=== PATIENT | female | born 1960 | race Caucasian/White ===

== ENCOUNTER 2019-01-12 06:59 | Day surgery (SDC) | payer OTHER ==
[~2019-01-12] VITALS: Ht 167.6 cm; Wt 108.6 kg
[~2019-01-12 06:59] MED LIST: ARIP5TAB14 PO; BENA10TA6 PO; CALC500T PO; LAMO150T3 PO; LEVO50TA89 PO; METF-849 PO; MULT-860 PO; OMEG100011 PO; TRIAMTERENE HCTZ; [UNRECOGNIZED DRUG - OTHER]; atorvastatin; glipizide; nateglinide; omeprazole; trazadone
[2019-01-12] MEDS ORDERED: PROPOFOL 40 ML ONE (10:21)
[2019-01-12 10:25] VITALS: BP 127/75; PULSE 82; RESP 24
[2019-01-12 10:44] VITALS: BP 113/58; RESP 22
[2019-01-12 10:55] VITALS: BP 128/61; RESP 22
[2019-01-12 11:33] VITALS: BP 115/56; PULSE 76; RESP 18
== END 2019-01-12 11:52 | disposition home or self-care (01) ==
LOC: GIL 06:59
PROVIDERS: ATTEND Internal Medicine Gastroenterology
DX: K44.9 Diaphragmatic hernia without obstruction or gangrene (principal); K22.70 Barrett's esophagus without dysplasia; K31.9 Disease of stomach and duodenum, unspecified; I10 Essential (primary) hypertension; E11.9 Type 2 diabetes mellitus without complications; Z79.84 Long term (current) use of oral hypoglycemic drugs
CPT/HCPCS: 43239; 82962; 88305; 88312; 88313; Z7610